=== PATIENT | female | born 1995 | race African-American/Black ===

== ENCOUNTER 2017-03-20 21:27 | Emergency (ER) | payer OTHER ==
[~2017-03-20] VITALS: Ht 167.6 cm; Wt 72.2 kg
[2017-03-21] MEDS ORDERED: diphenhydrAMINE 25 MG CAP PO ONE (04:00)
[2017-03-21] MEDS ORDERED: predniSONE 20 MG TAB PO ONE (04:00)
[2017-03-21 04:26] VITALS: BP 140/86
== END 2017-03-21 04:28 | disposition home or self-care (01) ==
LOC: M ED 21:27
DX: T63.481A Toxic effect of venom of other arthropod, accidental (unintentional), initial encounter (principal); Y92.139 Unspecified place military base as the place of occurrence of the external cause; Y99.1 Military activity

== ENCOUNTER → 2018-06-14 | Outpatient (CLI) | payer OTHER | LOC: M RAD 14:14 | DX: N63.41 Unspecified lump in right breast, subareolar (principal) | CPT/HCPCS: 76642 ==

== ENCOUNTER → 2018-10-23 | Outpatient (CLI) | payer OTHER ==
--- NOTE | 2018-10-23 20:55 | REP ---
LEFT BREAST ULTRASOUND: 10/23/2018. Clinical history: 23-year-old with palpable mass about 1 cm inferior and medial to the nipple at about 7 o'clock lower inner quadrant left breast. Findings: There were no prior studies. Sonographic evaluation of the left breast at 7 o'clock position where the patient notes the palpable region showed a 1 x 0.8 x 0.8 cm hypoechoic region. It is 3.5 cm from the central aspect of the nipple. There are internal echoes and through transmission. I did not see color flow within it. There are no other significant findings. Impression: BIRADS ACR category 4 suspicious, suspicious finding. Solid nodule suspected with internal echoes. This is a sub category 4A lesion, lower suspicion of malignancy for this solid nodule. Sonographically the most likely probable diagnosis is fibroadenoma or other similar benign finding. However, ultrasound is not a tissue specific diagnostic modality. Biopsy should be considered. This should certainly be done if the lesion enlarges while observed over time. If core needle biopsy is not desired, an alternative would be to follow this with an ultrasound in 6 months or sooner if clinically warranted. Electronically Signed by Jeferson Goldsmith MD 10/23/2018 09:04 P
== END ==
LOC: M RAD 16:06
PROVIDERS: ATTEND Internal Medicine
DX: N63.24 Unspecified lump in the left breast, lower inner quadrant (principal)

== ENCOUNTER → 2018-12-14 | Outpatient (CLI) | payer OTHER ==
[~2018-12-14] MED LIST: LIDOCAINE 1% MDV 20ML VIAL As Ordered ONE
--- NOTE | 2018-12-14 12:13 | REP ---
POSTBIOPSY MAMMOGRAM: Two views of the left breast performed in the ML and CC projections status post ultrasound-guided biopsy of a nodule in the region of 7-o'clock position left breast. Metallic clip is seen in that region marking the site of the biopsy. Electronically Signed by Naveen Boyd MD 12/14/2018 01:34 P
--- NOTE | 2018-12-15 15:02 | REP ---
ULTRASOUND-GUIDED LEFT BREAST BIOPSY The procedure was performed under the direct supervision of Dr. boyd. The patient has a history of A 1 x 0.8 x 0.8 cm hypoechoic nodule in the 7 o'clock position of the left breast seen on a previous ultrasound dated 10/23 2018. The risks and benefits of the procedure were explained to the patient and informed consent was obtained. The left breast nodule was localized using ultrasound guidance. The skin was prepped and draped in a sterile fashion. 1% lidocaine was used as a local anesthetic. Using ultrasound guidance a 13-gauge suction assisted Mammotome needle was inserted and six core biopsy samples were obtained. A marker clip was placed at the biopsy site. The patient tolerated the procedure well and there were no immediate complications. After the appropriate amount of monitored convalescence the patient was discharged from the department. Reviewed by TRACE Whelan 12/14/2018 05:07 P Electronically Signed by Naveen Boyd MD 12/15/2018 02:51 P
== END ==
LOC: M RADPRO 09:45
PROVIDERS: ATTEND Surgery
DX: N60.22 Fibroadenosis of left breast (principal)